=== PATIENT | female | born 1940 | race Caucasian/White ===

== ENCOUNTER 2021-05-13 20:02 | Inpatient (IN) ==
[2021-05-14] MEDS ORDERED: Ondansetron 4 MG/2 ML VIAL IVP PRN (02:19)
[2021-05-14] MEDS ORDERED: Naloxone 0.4 MG/ML INJ IVP PRN (02:19)
[2021-05-14] MEDS ORDERED: Ipratropium/Albuterol Neb 3 ML IH PRN (02:22)
[2021-05-14 03:08] LABS: Basophils % 0.3 %; Eosinophils # 0.5 K/mcL (0.0-0.6); Eosinophils % 5.9 %; Hematocrit 34.9 % (35.3-44.9); Hemoglobin 10.4 g/dL (11.5-15.4); Immature Granulocytes % 0.4 % (0-4); Lymphocytes # 0.6 K/mcL (0.6-4.6); Lymphocytes % 7.3 %; Mean Corpuscular HGB Conc 29.8 g/dL (31.6-35.5); Mean Corpuscular Hemoglobin 30.9 pg (28.0-33.3); Mean Corpuscular Volume 103.6 fL (83.0-100.0); Mean Platelet Volume 9.8 fL (9.4-12.4); Monocytes # 0.4 K/mcL (0.0-1.3); Monocytes % 4.9 %; Neutrophils # 6.4 K/mcL (1.6-8.9); Platelet Count 141 K/mcL (140-400); Red Blood Count 3.37 M/mcL (3.82-4.97); Red Cell Distribution Width 15.1 % (11.5-14.5); Segmented Neutrophils % 81.2 %; White Blood Count 7.9 K/mcL (4.3-11.1)
[2021-05-14 03:13] LABS: INR 1.1; Prothrombin Time 12.6 Seconds (9.4-12.1)
[2021-05-14 03:25] LABS: Magnesium 1.6 mg/dL (1.6-2.6); Phosphorous 3.3 mg/dL (2.7-4.5)
[2021-05-14] MEDS ORDERED: Dextrose Gel 15 GM/37.5 ML TUBE PO PRN ×2 (03:27)
[2021-05-14] MEDS ORDERED: *HR* Dextrose 50 % in Water (Syg) 50 ML SYRINGE IVP PRN (03:27)
[2021-05-14] MEDS ORDERED: D5% in Water 1,000 ML IVC PRN (03:27)
[2021-05-14 03:54] LABS: BUN/Creatinine Ratio 21 (6-26); Blood Urea Nitrogen 22 mg/dL (8-23); Calcium 8.5 mg/dL (8.6-10.3); Carbon Dioxide 28 mEq/L (23-29); Chloride 98 mEq/L (98-107); Glucose 254 mg/dL (70-105); Osmolality,Calculated 294 (280-300); Potassium 4.7 mEq/L (3.5-5.1); Sodium 136 mEq/L (136-145); eGFR For African Americans > 60 (> 60); eGFR For Non-African Americans 50 (> 60)
[2021-05-14 03:57] LABS: Thyroid Stimulating Hormone 4.286 mcIU/mL (0.340-5.600)
[2021-05-14] MEDS: Insulin LISPRO 300 UNITS/3 ML VIAL SUBQ SCH ×5 (05:51→21:02)
[2021-05-14] MEDS ORDERED: Vancomycin 1,500 MG/265 ML IV.SOLN IVPB SCH (06:00)
[2021-05-14 06:03] LABS: Estimated Average Glucose 189 mg/dl; Hemoglobin A1C 8.2 %
[2021-05-14 06:21] LABS: Bilirubin,Urine Negative (Negative); Blood,Urine Small (Negative); Budding Yeast,Urine Few per hpf (None Seen); Clarity,Urine Turbid (Clear); Color,Urine Yellow (Yellow); Glucose,Urine (UA) Normal (Normal); Ketones,Urine Negative (Negative); Leukocyte Esterase,Urine Large (Negative); Mucus,Urine Few per lpf (None-Few); Nitrite,Urine Negative (Negative); Protein,Urine 100 mg/dL (Neg-Trace); RBC,Urine 15-30 per hpf (0-3); Renal Epithelial Cells,Urine Few per hpf (None-Few); Squamous Epithelial Cell,Urine Moderate per hpf (None-Few); Urobilinogen,Urine Normal (Normal); WBC,Urine TNTC per hpf (0-3)
[2021-05-14] MEDS ORDERED: *HR* Heparin 5,000 UNIT/ML VIAL IVP ONE (06:45)
[2021-05-14] MEDS ORDERED: *HR* Heparin 5,000 UNIT/ML VIAL IVP PRN ×2 (06:45)
[2021-05-14] MEDS ORDERED: Isovue-370 500 ML BOTTLE IVP ONE (06:45)
[2021-05-14] MEDS ORDERED: Heparin 25,000UNIT/250ML 1/2NS 25,000 UNIT/250 ML IV.SOLN IVC SCH (06:45)
[2021-05-14] MEDS: Piperacillin/Tazobactam 3.375 GM in 0.9 % Sodium Chloride Mini Bag 100 ML IVPB SCH ×2 (08:10→16:14)
[2021-05-14] MEDS ORDERED: Heparin 25,000 UNIT/250 ML 25,000 UNIT/250 ML IV.SOLN IVC SCH (08:30)
[2021-05-14] MEDS ORDERED: *HR* Enoxaparin 30 MG/0.3 ML SYRINGE SQ SCH (09:00)
[2021-05-14] MEDS: predniSONE 20 MG TABLET PO SCH (12:40)
[2021-05-14] MEDS: Ipratropium/Albuterol Neb 3 ML IH SCH ×3 (15:16→22:36)
[2021-05-14 15:58] LABS: Adenovirus Not Detected (Not Detect); Bordetella Pertussis Not Detected (Not Detect); Chlamydophila pneumoniae Not Detected (Not Detect); Coronavirus 229E Not Detected (Not Detect); Coronavirus HKU1 Not Detected (Not Detect); Coronavirus NL63 Not Detected (Not Detect); Coronavirus OC43 Not Detected (Not Detect); Human Metapneumovirus Not Detected (Not Detect); Human Rhinovirus/Enterovirus Not Detected (Not Detect); Influenza A Subtype 2009 H1 Not Detected (Not Detect); Influenza B Not Detected (Not Detect); Mycoplasma pneumoniae Not Detected (Not Detect); Parainfluenza Virus 1 Not Detected (Not Detect); Parainfluenza Virus 2 Not Detected (Not Detect); Parainfluenza Virus 3 Not Detected (Not Detect); Parainfluenza Virus 4 Not Detected (Not Detect); Respiratory Syncytial Virus Not Detected (Not Detect); SARS-CoV-2 Not Detected (Not Detect)
[2021-05-14] MEDS: *HR* Enoxaparin 40 MG/0.4 ML SYRINGE SQ SCH (21:02)
[2021-05-15] MEDS: Piperacillin/Tazobactam 3.375 GM in 0.9 % Sodium Chloride Mini Bag 100 ML IVPB SCH ×3 (01:04→17:07)
[2021-05-15] MEDS: Acetaminophen 325 MG TABLET PO PRN (01:06)
[2021-05-15] MEDS: Ipratropium/Albuterol Neb 3 ML IH SCH ×4 (03:36→21:54)
[2021-05-15 05:06] LABS: Basophils % 0.4 %; Hematocrit 32.8 % (35.3-44.9); Immature Granulocytes % 0.4 % (0-4); Lymphocytes # 0.6 K/mcL (0.6-4.6); Mean Corpuscular HGB Conc 30.5 g/dL (31.6-35.5); Mean Corpuscular Hemoglobin 31.5 pg (28.0-33.3); Mean Corpuscular Volume 103.5 fL (83.0-100.0); Mean Platelet Volume 9.6 fL (9.4-12.4); Monocytes # 0.1 K/mcL (0.0-1.3); Monocytes % 2.1 %; Neutrophils # 4.5 K/mcL (1.6-8.9); Platelet Count 144 K/mcL (140-400); Red Blood Count 3.17 M/mcL (3.82-4.97); Red Cell Distribution Width 14.5 % (11.5-14.5); Segmented Neutrophils % 85.1 %; White Blood Count 5.3 K/mcL (4.3-11.1)
[2021-05-15 05:28] LABS: BUN/Creatinine Ratio 24 (6-26); Blood Urea Nitrogen 21 mg/dL (8-23); C-Reactive Protein 123 mg/L (Less than 10); Carbon Dioxide 35 mEq/L (23-29); Chloride 97 mEq/L (98-107); Glucose 216 mg/dL (70-105); Osmolality,Calculated 292 (280-300); Potassium 4.8 mEq/L (3.5-5.1); Sodium 136 mEq/L (136-145); eGFR For African Americans > 60 (> 60); eGFR For Non-African Americans > 60 (> 60)
[2021-05-15] MEDS: *HR* Enoxaparin 40 MG/0.4 ML SYRINGE SQ SCH ×2 (07:55→20:32)
[2021-05-15] MEDS: predniSONE 20 MG TABLET PO SCH (07:56)
[2021-05-15] MEDS: Insulin LISPRO 300 UNITS/3 ML VIAL SUBQ SCH ×4 (08:00→20:34)
[2021-05-15] MEDS ORDERED: Furosemide 40 MG/4 ML VIAL IVP ONE (13:05)
[2021-05-15] MEDS ORDERED: Sennosides/Docusate Sodium TABLET PO PRN (13:06)
[2021-05-15] MEDS ORDERED: Ondansetron ODT 4 MG TAB.RAPDIS PO PRN (13:06)
[2021-05-15] MEDS ORDERED: Lactulose Oral Soln 20 GM/30 ML UDC PO PRN (13:06)
[2021-05-15] MEDS: GuaiFENesin Liq 200 MG/10 ML UDC PO SCH (17:07)
[2021-05-15] MEDS: carvediloL 6.25 MG TABLET PO SCH (17:09)
[2021-05-15] MEDS: *HR* HYDROcodone/Acet 5/325 mg TABLET PO SCH (20:32)
[2021-05-15] MEDS: Gabapentin 300 MG CAPSULE PO SCH (20:33)
[2021-05-15] MEDS: *HR* LORazepam 0.5 MG TABLET PO SCH (20:33)
[2021-05-15 22:37] LABS: Ferritin 110 ng/mL (10-120)
[2021-05-16] MEDS: Piperacillin/Tazobactam 3.375 GM in 0.9 % Sodium Chloride Mini Bag 100 ML IVPB SCH ×3 (00:09→17:02)
[2021-05-16] MEDS: GuaiFENesin Liq 200 MG/10 ML UDC PO SCH ×4 (00:13→17:02)
[2021-05-16] MEDS: Ipratropium/Albuterol Neb 3 ML IH SCH ×4 (04:08→20:04)
[2021-05-16] MEDS: Acetaminophen 325 MG TABLET PO PRN ×2 (04:43→17:08)
[2021-05-16 06:00] LABS: BUN/Creatinine Ratio 25 (6-26); Blood Urea Nitrogen 25 mg/dL (8-23); Calcium 8.9 mg/dL (8.6-10.3); Carbon Dioxide 35 mEq/L (23-29); Chloride 95 mEq/L (98-107); Glucose 178 mg/dL (70-105); Osmolality,Calculated 289 (280-300); Potassium 4.8 mEq/L (3.5-5.1); Sodium 135 mEq/L (136-145); eGFR For African Americans > 60 (> 60); eGFR For Non-African Americans 53 (> 60)
[2021-05-16 06:16] LABS: Basophils % 0.2 %; Eosinophils % 0.7 %; Hematocrit 30.6 % (35.3-44.9); Hemoglobin 9.3 g/dL (11.5-15.4); Immature Granulocytes % 0.4 % (0-4); Lymphocytes # 0.9 K/mcL (0.6-4.6); Lymphocytes % 16.9 %; Mean Corpuscular HGB Conc 30.4 g/dL (31.6-35.5); Mean Corpuscular Hemoglobin 31.4 pg (28.0-33.3); Mean Corpuscular Volume 103.4 fL (83.0-100.0); Monocytes # 0.5 K/mcL (0.0-1.3); Monocytes % 8.5 %; Platelet Count 163 K/mcL (140-400); Red Blood Count 2.96 M/mcL (3.82-4.97); Red Cell Distribution Width 14.4 % (11.5-14.5); Segmented Neutrophils % 73.3 %; White Blood Count 5.4 K/mcL (4.3-11.1)
[2021-05-16] MEDS: Gabapentin 300 MG CAPSULE PO SCH ×2 (07:35→20:08)
[2021-05-16] MEDS: *HR* HYDROcodone/Acet 5/325 mg TABLET PO SCH ×2 (07:35→20:08)
[2021-05-16] MEDS: predniSONE 20 MG TABLET PO SCH (07:35)
[2021-05-16] MEDS: *HR* LORazepam 0.5 MG TABLET PO SCH ×2 (07:36→20:09)
[2021-05-16] MEDS: carvediloL 6.25 MG TABLET PO SCH ×2 (07:36→17:02)
[2021-05-16] MEDS: Insulin LISPRO 300 UNITS/3 ML VIAL SUBQ SCH ×4 (07:37→20:10)
[2021-05-16] MEDS: *HR* Enoxaparin 40 MG/0.4 ML SYRINGE SQ SCH ×2 (07:37→20:07)
[2021-05-16] MEDS: allopurinoL 300 MG TABLET PO SCH (07:40)
[2021-05-16] MEDS: Nystatin POWDER 30 GM BOTTLE TP SCH ×3 (07:40→20:11)
[2021-05-16] MEDS: polyethylene glycoL 3350 17 GM POWD.PACK PO SCH (07:40)
[2021-05-16] MEDS: Aspirin Enteric Coated 81 MG Tablet PO SCH (07:40)
[2021-05-16] MEDS: Furosemide 40 MG/4 ML VIAL IVP SCH (12:05)
[2021-05-16 14:03] LABS: Amylase,Pleural Fluid < 10 Units/L (No Ref Range); Glucose,Pleural Fluid 196 mg/dL (No Ref Range); LDH,Pleural Fluid 153 Units/L (No Ref Range); Total Protein,Pleural Fluid 3.5 g/dL
[2021-05-16 16:53] LABS: RBC,Pleural Fluid 7000 RBC/mcL
[2021-05-16 17:30] LABS: Appearance of Pleural Fl Hazy (Clear); Basophils,Pleural Fluid 0 %; Eosinophils,Pleural Fluid 0 %; Monocytes,Pleural Fluid 0 %
[2021-05-17] MEDS: GuaiFENesin Liq 200 MG/10 ML UDC PO SCH ×4 (00:20→17:19)
[2021-05-17] MEDS: Piperacillin/Tazobactam 3.375 GM in 0.9 % Sodium Chloride Mini Bag 100 ML IVPB SCH ×3 (00:20→17:19)
[2021-05-17 02:57] LABS: Basophils % 0.2 %; Eosinophils # 0.1 K/mcL (0.0-0.6); Eosinophils % 1.1 %; Hematocrit 29.2 % (35.3-44.9); Immature Granulocytes % 0.4 % (0-4); Lymphocytes # 0.9 K/mcL (0.6-4.6); Lymphocytes % 19.6 %; Mean Corpuscular HGB Conc 30.8 g/dL (31.6-35.5); Mean Corpuscular Hemoglobin 30.9 pg (28.0-33.3); Mean Corpuscular Volume 100.3 fL (83.0-100.0); Mean Platelet Volume 9.7 fL (9.4-12.4); Monocytes # 0.5 K/mcL (0.0-1.3); Monocytes % 9.8 %; Neutrophils # 3.2 K/mcL (1.6-8.9); Platelet Count 141 K/mcL (140-400); Red Blood Count 2.91 M/mcL (3.82-4.97); Red Cell Distribution Width 13.9 % (11.5-14.5); Segmented Neutrophils % 68.9 %; White Blood Count 4.6 K/mcL (4.3-11.1)
[2021-05-17 03:22] LABS: BUN/Creatinine Ratio 27 (6-26); Blood Urea Nitrogen 27 mg/dL (8-23); C-Reactive Protein 34 mg/L (Less than 10); Calcium 8.8 mg/dL (8.6-10.3); Carbon Dioxide 35 mEq/L (23-29); Chloride 93 mEq/L (98-107); Glucose 223 mg/dL (70-105); Osmolality,Calculated 292 (280-300); Sodium 135 mEq/L (136-145); eGFR For African Americans > 60 (> 60); eGFR For Non-African Americans 54 (> 60)
[2021-05-17 03:35] LABS: Ferritin 87 ng/mL (10-120)
[2021-05-17] MEDS: Ipratropium/Albuterol Neb 3 ML IH SCH ×4 (03:35→19:59)
[2021-05-17] MEDS: polyethylene glycoL 3350 17 GM POWD.PACK PO SCH (07:39)
[2021-05-17] MEDS: allopurinoL 300 MG TABLET PO SCH (07:39)
[2021-05-17] MEDS: *HR* Enoxaparin 40 MG/0.4 ML SYRINGE SQ SCH ×2 (07:39→21:41)
[2021-05-17] MEDS: *HR* HYDROcodone/Acet 5/325 mg TABLET PO SCH ×2 (07:39→21:42)
[2021-05-17] MEDS: *HR* LORazepam 0.5 MG TABLET PO SCH ×2 (07:39→21:43)
[2021-05-17] MEDS: predniSONE 20 MG TABLET PO SCH (07:40)
[2021-05-17] MEDS: carvediloL 6.25 MG TABLET PO SCH ×2 (07:40→17:19)
[2021-05-17] MEDS: Gabapentin 300 MG CAPSULE PO SCH ×2 (07:40→21:42)
[2021-05-17] MEDS: Aspirin Enteric Coated 81 MG Tablet PO SCH (07:40)
[2021-05-17] MEDS: Furosemide 40 MG/4 ML VIAL IVP SCH (07:40)
[2021-05-17] MEDS: Nystatin POWDER 30 GM BOTTLE TP SCH ×3 (07:41→21:43)
[2021-05-17] MEDS: Insulin LISPRO 300 UNITS/3 ML VIAL SUBQ SCH ×4 (07:41→21:42)
[2021-05-18] MEDS: GuaiFENesin Liq 200 MG/10 ML UDC PO SCH ×2 (00:53→05:30)
[2021-05-18] MEDS: Piperacillin/Tazobactam 3.375 GM in 0.9 % Sodium Chloride Mini Bag 100 ML IVPB SCH (00:53)
[2021-05-18] MEDS: Ipratropium/Albuterol Neb 3 ML IH SCH ×2 (04:07→10:43)
[2021-05-18 06:11] LABS: Fluid Source for Triglycerides PLEURAL FLUID
[2021-05-18 06:46] LABS: Triglycerides,Body Fluid 18 mg/dL
[2021-05-18] MEDS ORDERED: levoFLOXacin 750 MG TABLET PO SCH (09:00)
[2021-05-18] MEDS: polyethylene glycoL 3350 17 GM POWD.PACK PO SCH (10:05)
[2021-05-18] MEDS: Insulin LISPRO 300 UNITS/3 ML VIAL SUBQ SCH (10:05)
[2021-05-18] MEDS: predniSONE 20 MG TABLET PO SCH (10:06)
[2021-05-18] MEDS: *HR* HYDROcodone/Acet 5/325 mg TABLET PO SCH (10:06)
[2021-05-18] MEDS: Gabapentin 300 MG CAPSULE PO SCH (10:06)
[2021-05-18] MEDS: Aspirin Enteric Coated 81 MG Tablet PO SCH (10:06)
[2021-05-18] MEDS: allopurinoL 300 MG TABLET PO SCH (10:06)
[2021-05-18] MEDS: *HR* LORazepam 0.5 MG TABLET PO SCH (10:06)
[2021-05-18] MEDS: *HR* Enoxaparin 40 MG/0.4 ML SYRINGE SQ SCH (10:07)
[2021-05-18] MEDS: carvediloL 6.25 MG TABLET PO SCH (10:09)
[2021-05-18] MEDS: Furosemide 40 MG/4 ML VIAL IVP SCH ×2 (10:29→11:36)
[2021-05-18 10:34] VITALS: BP 136/50; PULSE 65; TEMP 97.5
[2021-05-18 10:53] LABS: BUN/Creatinine Ratio 24 (6-26); Blood Urea Nitrogen 22 mg/dL (8-23); Carbon Dioxide 35 mEq/L (23-29); Chloride 95 mEq/L (98-107); Glucose 301 mg/dL (70-105); Osmolality,Calculated 297 (280-300); Potassium 3.8 mEq/L (3.5-5.1); Sodium 136 mEq/L (136-145); eGFR For African Americans > 60 (> 60); eGFR For Non-African Americans 59 (> 60)
[2021-05-18 10:55] LABS: Basophils % 0.2 %; Eosinophils # 0.2 K/mcL (0.0-0.6); Eosinophils % 4.9 %; Hematocrit 31.4 % (35.3-44.9); Hemoglobin 9.8 g/dL (11.5-15.4); Immature Granulocytes % 0.4 % (0-4); Lymphocytes # 1.3 K/mcL (0.6-4.6); Lymphocytes % 28.3 %; Mean Corpuscular HGB Conc 31.2 g/dL (31.6-35.5); Mean Corpuscular Volume 99.4 fL (83.0-100.0); Mean Platelet Volume 10.5 fL (9.4-12.4); Monocytes # 0.6 K/mcL (0.0-1.3); Monocytes % 12.4 %; Neutrophils # 2.4 K/mcL (1.6-8.9); Platelet Count 167 K/mcL (140-400); Red Blood Count 3.16 M/mcL (3.82-4.97); Red Cell Distribution Width 14.3 % (11.5-14.5); Segmented Neutrophils % 53.8 %; White Blood Count 4.5 K/mcL (4.3-11.1)
[2021-05-18 14:17] VITALS: O2SAT 93
[2021-05-18 22:40] LABS: Fluid Source for Albumin PLEURAL FLUID
[2021-05-19 14:59] LABS: Cholesterol,Body Fluid 54 mg/dL; Fluid Source for Cholesterol PLEURAL FLUID
== END 2021-05-18 14:27 | DRG 193 ==
LOC: 2NENU → SUATTDRO 05-14 02:19
PROVIDERS: ADMIT Internal Medicine; ATTEND Student in an Organized Health Care Education/Training Program